=== PATIENT | male | born 1985 | race African-American/Black ===

== ENCOUNTER 2025-01-26 09:36 | Emergency (ER) | payer MEDICAID, OTHER ==
[~2025-01-26] VITALS: Ht 190.5 cm; Wt 74.4 kg
[2025-01-26 09:38] VITALS: TEMP 98
--- NOTE | 2025-01-26 09:52 | ECG ---
[facility] Test Date: 2025-01-26 Test Time: 09:49:40 Pat Name: DONNA JENKINS Department: ED Room: Gender: M Medication Reconciliation Technician: rhianna : 1985 Requested By: JUAN JOY Order Number: [id number] Reading MD: Aleksey Collier Measurements Intervals [place] Rate: 62 P: 78 CA: 127 QRS: 57 QRSD: 95 T: 49 QT: 437 QTc: 444 Interpretive Statements Sinus rhythm ST elev, probable normal early repol pattern Electronically Signed On 01-27-2025 17:02:39 PDT by Aleksey Collier Please click the below link to view image of tracing.
[2025-01-26] MEDS: SODIUM CHLORIDE 0.9% 2,000 ML IV ONE (11:01)
[2025-01-26 11:02] LABS: Hematocrit 46.4 % (41.0-53.0); Hemoglobin 16.0 g/dL (13.5-17.5); Mean Corpuscular Hemoglobin 32.4 pg (28.0-32.0); Mean Corpuscular Volume 93.8 fL (80.0-100.0); Nucleated Red Blood Cells % 0.1 %
[2025-01-26] MEDS: METHOCARBAMOL 500 MG TAB PO ONE (11:06)
[2025-01-26 11:11] LABS: Potassium 4.1 mmol/L (3.5-5.1); Sodium 143 mmol/L (136-145)
[2025-01-26 11:12] LABS: Anion Gap 9 (5-15); Calcium 10.1 mg/dL (8.7-10.4); Carbon Dioxide 26 mmol/L (20-31)
[2025-01-26 11:14] LABS: Chloride 108 mmol/L (98-107)
[2025-01-26 11:17] LABS: BUN/Creatinine Ratio 9.0 (10.0-20.0); Blood Urea Nitrogen 9 mg/dL (9-23); Glucose 82 mg/dL (74-106)
[2025-01-26] MEDS ORDERED: METH-1182 PO (11:47)
--- NOTE | 2025-01-26 11:47 | ED.PDOC ---
History of Present Illness HPI Comments 39-year-old male with a history of asthma brought in by girlfriend for evaluation of onset of bilateral hand cramps radiating to both upper extremities, facial numbness, body numbness, onset while driving. Patient states the symptoms lasted approximately 20 minutes. By the time he arrived in the ER, the symptoms had resolved. He denies any current pain. He states he may have been breathing fast prior to the onset of the symptoms. He denies any headache, dizziness, focal weakness, chest pain or shortness of breath. Chief Complaint: Body Pain Time Seen by MD: 10:10 Allergies: Coded Allergies: NO KNOWN ALLERGIES (Unverified , 01/26/25) Home Meds Active Scripts Methocarbamol (Methocarbamol) 750 Mg Tab, 750 MG PO Q8HP PRN, #30 TAB prn muscle spasms Prov:GUILLERMO SCHMIDT MD 01/26/25 Mode of Arrival: Ambulatory Past Medical History PAST MEDICAL HISTORY: Asthma Surgical History: Denies all surgeries Family History Family History: Reviewed,noncontributory to illness Social History Smoker: Non-Smoker Alcohol: Denies ETOH Use Drugs: Denies Drug Use Lives In: Home All Other Systems: Reviewed and Negative (Comprehensive systems review obtained and negative except for what is stated in the HPI.) Physical Exam General Appearance: No Apparent Distress HEENT: Other (Pupils and face symmetric. Moist mucous membranes.) Neck: Full Range of Motion, Normal Inspection Respiratory: Lungs Clear, No Accessory Muscle Use, No Respiratory Distress, Normal Breath Sounds Cardiovascular: No Edema, No JVD, Regular Rate/Rhythm Breast Exam: Deferred Gastrointestinal: Non Tender, Soft Genitalia: Deferred Pelvic: Deferred Rectal: Deferred Extremities: Normal inspection, Normal range of motion, Non-tender, No pedal edema Neurologic: Alert (Oriented x4), Normal Affect, Other (Appears slightly anxious. Ambulatory. No gross focal deficit.) Cerebellar Function: NOT DONE Reflexes: NOT DONE Skin: Dry, Normal Color, Warm Lymphatic: NOT DONE Was a procedure done? Was a procedure done?: No Differential Dx Considerations may include: Electrolyte imbalance, anxiety/panic attack, dehydration, muscle spasm, among others X-Ray, Labs, Meds, VS Vital Signs Date Time Temp Pulse Resp B/P (MAP) Pulse Ox O2 Delivery O2 Flow Rate FiO2 01/26/25 12:08 79 18 98 Room Air 01/26/25 12:08 79 18 156/94 (114) 98 01/26/25 09:49 62 01/26/25 09:38 98.0 74 15 144/98 99 98.0 Lab Test 01/26/25 10:43 Range/Units White Blood Count 8.3 4.4-10.8 10^3/uL Red Blood Count 4.95 4.5-5.90 10^6/uL Hemoglobin 16.0 13.5-17.5 g/dL Hematocrit 46.4 41.0-53.0 % Mean Corpuscular Volume 93.8 80.0-100.0 fL Mean Corpuscular Hemoglobin 32.4 H 28.0-32.0 pg Mean Corpuscular Hemoglobin Concent 34.6 32.0-36.0 g/dL Red Cell Distribution Width 13.8 11.8-14.3 % Platelet Count 405 140-450 10^3/uL Mean Platelet Volume 7.7 6.9-10.8 fL Neutrophils (%) (Auto) 80.7 H 37.0-80.0 % Lymphocytes (%) (Auto) 12.2 10.0-50.0 % Monocytes (%) (Auto) 6.1 0.0-12.0 % Eosinophils (%) (Auto) 0.2 0.0-7.0 % Basophils (%) (Auto) 0.8 0.0-2.0 % Neutrophils # (Auto) 6.7 1.6-8.6 10 ^3/uL Lymphocytes # (Auto) 1.0 0.4-5.4 10 ^3/uL Monocytes # (Auto) 0.5 0-1.3 10 ^3/uL Eosinophils # (Auto) 0 0-0.8 10 ^3/uL Basophils # (Auto) 0.1 0-0.2 10 ^3/uL Nucleated Red Blood Cells 0.1 % Sodium Level 143 136-145 mmol/L Potassium Level 4.1 3.5-5.1 mmol/L Chloride Level 108 H 98-107 mmol/L Carbon Dioxide Level 26 20-31 mmol/L Anion Gap 9 5-15 Blood Urea Nitrogen 9 9-23 mg/dL Creatinine 1.00 0.700-1.30 mg/dL Glomerular Filtration Rate Calc 97 >90 mL/min BUN/Creatinine Ratio 9.0 L 10.0-20.0 Serum Glucose 82 74-106 mg/dL Calcium Level 10.1 8.7-10.4 mg/dL Current Medications Medications (Trade) Dose Ordered Sig/Radha Route Start Time Stop Time Status Last Admin Sodium Chloride 2,000 ml @ 1,000 mls/hr Q2H ONCE IV 01/26/25 11:00 01/26/25 12:18 DC 01/26/25 11:01 Methocarbamol (Robaxin) 750 mg ONCE ONCE PO 01/26/25 11:00 01/26/25 11:01 DC 01/26/25 11:06 X-Ray, Labs, Meds, VS Comment 39-year-old male with a history of asthma presenting with a 20 minute episode of bilateral upper extremity cramping, facial and body numbness, resolved prior to ED arrival. Vitals remarkable for BP 144/98 Exam unremarkable Rhythm strip independently interpreted by me: Sinus rhythm, rate 74, no ectopy. CBC and basic metabolic panel unremarkable Patient treated with the following in the ED: 1 L 0.9 normal saline IV bolus, Robaxin 750 mg p.o. On re-evaluation, patient states symptoms have not reoccurred, and he feels like he is back to baseline. Patient appears stable for discharge with close outpatient follow-up with his primary physician. Rx Robaxin Time of 1ST Reevaluation: 11:33 Reevaluation 1ST: Improved Patient Education/Counseling: Diagnosis, Treatment, Need For Follow Up Family Education/Counseling: No Family Present SEPSIS Sepsis Screen Date sepsis recognized/suspect: Jan 26, 2025 Time Sepsis recognized/suspect: 941 Recent Procedure: No On Antibiotic Therapy: No Respiratory Rate >20: No Heart Rate >90: No Temp<36 C (96.8 F) or >38.3 C: No SBP <90 or MAP <65 mmHG: No New Acute Mental Status Change: No Is the patient on CPAP, BIPAP,: No Vital Signs Date Time Temp Pulse Resp B/P (MAP) Pulse Ox O2 Delivery O2 Flow Rate FiO2 01/26/25 12:08 79 18 98 Room Air 01/26/25 12:08 79 18 156/94 (114) 98 01/26/25 09:49 62 01/26/25 09:38 98.0 74 15 144/98 99 98.0 Laboratory Tests Test 01/26/25 10:43 White Blood Count 8.3 10^3/uL (4.4-10.8) Medications Medications Dose Ordered Sig/Radha Route Start Time Stop Time Status Last Admin Dose Admin Methocarbamol 750 mg ONCE ONCE PO 01/26/25 11:00 01/26/25 11:01 DC 01/26/25 11:06 Sodium Chloride 2,000 ml @ 1,000 mls/hr Q2H ONCE IV 01/26/25 11:00 01/26/25 12:18 DC 01/26/25 11:01 Departure 1 Departure Time of Disposition: 11:33 Impression: Primary Impression: Muscle spasm Additional Impression: Paresthesia Disposition: HOME / SELF CARE / HOMELESS Condition: Stable Additional Instructions: Your blood tests were unremarkable. Your symptoms may have been due to dehydration, rapid breathing, anxiety/panic attack, or muscle fatigue/spasm. I have prescribed a muscle relaxer, which may alleviate the symptoms if they occur again. Follow-up with your primary doctor in 1-2 days. Return to ER for persistent or worsening symptoms. e-Prescriptions Methocarbamol (Methocarbamol) 750 Mg Tab 750 MG PO Q8HP PRN, #30 TAB prn muscle spasms Prov: GUILLERMO SCHMIDT MD 01/26/25 Discharged With: Significant Other Critical Care Note Critical Care Time?: No Stability Stability form required: No Heart Score Heart Score: Heart Score Response (Comments) Value History N/A 0 EKG N/A 0 Age N/A 0 Risk Factors N/A 0 Troponin N/A 0 Total 0 GUILLERMO SCHMIDT MD Jan 26, 2025 11:47
[2025-01-26 12:08] VITALS: BP 156/94; PULSE 79; RESP 18; O2SAT 98
== END 2025-01-26 12:18 | disposition home or self-care (01) ==
LOC: ER 09:36
DX: M62.838 Other muscle spasm (principal); R20.2 Paresthesia of skin; J45.909 Unspecified asthma, uncomplicated
CPT/HCPCS: 36415; 80048; 85025; 93005; 96360; 99284; J7030